=== PATIENT | female | born 1990 | race African-American/Black ===

== ENCOUNTER 2017-09-07 21:48 | Emergency (ER) | payer MEDICAID ==
[~2017-09-07] VITALS: Ht 160 cm; Wt 71.0 kg
[2017-09-07 22:14] VITALS: BP 103/67
== END 2017-09-08 01:27 | disposition left against medical advice (07) ==
LOC: ER 09-08 00:32
DX: Z04.2 Encounter for examination and observation following work accident (principal); Z53.21 Procedure and treatment not carried out due to patient leaving prior to being seen by health care provider

== ENCOUNTER 2020-09-17 21:42 | Emergency (ER) | payer MEDICARE, OTHER ==
[~2020-09-17] VITALS: Ht 160 cm; Wt 50.0 kg
[2020-09-17] MEDS ORDERED: KETOROLAC 30MG/ML VIAL IM ONE (22:30)
[2020-09-17 22:34] VITALS: BP 114/77
[2020-09-17] MEDS ORDERED: NAPR-1098 MT (23:15)
== END 2020-09-17 23:56 | disposition home or self-care (01) ==
LOC: ER 21:42
DX: M25.562 Pain in left knee (principal); Z98.890 Other specified postprocedural states; F12.10 Cannabis abuse, uncomplicated
CPT/HCPCS: 73560; 81025; 96372; 99283; J1885

== ENCOUNTER 2025-07-05 18:25 | Emergency (ER) | payer MEDICARE, OTHER ==
[~2025-07-05] VITALS: Ht 162.6 cm; Wt 68.0 kg
[~2025-07-05 18:25] MED LIST: NAPR-1098 MT
[2025-07-05 18:29] VITALS: O2SAT 100
[2025-07-05 19:13] LABS: BASOPHILS % 0.6 % (0.0-2.0); EOSINOPHILS % 0.6 % (0.0-5.0); HEMATOCRIT. 35.7 % (36.0-48.0); HEMOGLOBIN. 11.6 g/dL (12.0-16.0); LYMPHOCYTES % 39.2 % (20.0-50.0); MEAN PLATELET VOLUME 7.5 fl (7.4-10.4); MONOCYTES % 4.7 % (2.0-8.0); NEUTROPHILS % 54.9 % (40.0-76.0); PLATELET 340 x1000/uL (130-400); RED BLOOD CELL COUNT 4.26 mill/uL (4.2-5.4); RED CELL DISTRIBUTION WIDTH 16.9 % (11.6-14.6)
[2025-07-05 19:26] LABS: CREATININE 0.8 mg/dL (0.6-1.0)
[2025-07-05 19:27] LABS: PROTEIN TOTAL 6.7 g/dL (6.0-8.3); UREA NITROGEN BLOOD 11 mg/dL (9-23)
[2025-07-05 19:28] LABS: ASPARTATE AMINOTRANSFERASE 16 IU/L (<34)
[2025-07-05 19:29] LABS: BILIRUBIN DIRECT < 0.1 mg/dL (<=3.0); BILIRUBIN TOTAL 0.2 mg/dL (0.1-1.0)
[2025-07-05] MEDS: METOCLOPRAMIDE HCL 10MG/2ML VIAL IV ONE (19:37)
[2025-07-05] MEDS: SODIUM CHLORIDE 0.9% 1,000 ML IV ONE (19:37)
[2025-07-05 19:43] LABS: HCG SCREEN NEGATIVE
[2025-07-05] MEDS ORDERED: LACT1CAP88 MT (20:51)
[2025-07-05 21:05] VITALS: BP 113/77; PULSE 62; RESP 15; TEMP 36.8; O2SAT 100
[2025-07-05] MEDS: IOHEXOL-300 100 ML BOTTLE ONE (21:54)
== END 2025-07-05 21:06 | disposition home or self-care (01) ==
LOC: ER 18:25
DX: K52.9 Noninfective gastroenteritis and colitis, unspecified (principal); R51.9 Headache, unspecified; R11.2 Nausea with vomiting, unspecified; Z79.899 Other long term (current) drug therapy
CPT/HCPCS: 99285; 70450; 96374; 96361; 80076; 80048; 84703; 83690; 83735; 85025; 36415; 74177; Q9967; J2765; J7030